=== PATIENT | male | born 1945 | race Caucasian/White ===

== ENCOUNTER 2021-04-16 10:56 | Emergency (ER) | payer MEDICARE, OTHER ==
[2021-04-16 11:48] LABS: HEMOGLOBIN 14.5 gm/dl (14.0-17.5); RED BLOOD COUNT 4.79 M/UL (4.20-5.50); WHITE BLOOD COUNT 9.6 K/UL (4.5-11.0)
[2021-04-16] MEDS ORDERED: BACTRIM 400-801 EACH PO (16:48)
[2021-04-16] MEDS ORDERED: CEPHALEXIN500 M1 PO (16:48)
== END 2021-04-16 17:46 | disposition home or self-care (01) ==
LOC: ER1 10:56
PROVIDERS: Physician Assistant
DX: N41.0 Acute prostatitis (principal); E11.9 Type 2 diabetes mellitus without complications; I10 Essential (primary) hypertension
CPT/HCPCS: 80053; 81001; 85025; 99284; J7030; Q9967

== ENCOUNTER → 2021-05-01 | Outpatient (CLI) | payer MEDICARE, OTHER ==
[~2021-05-01] MED LIST: BACTRIM 400-801 EACH PO; CEPHALEXIN500 M1 PO
== END ==
LOC: KOH-I 12:07
DX: J44.1 Chronic obstructive pulmonary disease with (acute) exacerbation (principal)
CPT/HCPCS: 71046

== ENCOUNTER → 2022-01-29 | Outpatient (CLI) | payer MEDICARE, OTHER | LOC: ECHO 01-28 11:00 | DX: Z01.810 Encounter for preprocedural cardiovascular examination (principal); I10 Essential (primary) hypertension; I08.1 Rheumatic disorders of both mitral and tricuspid valves | CPT/HCPCS: ECHO; 93306 ==

== ENCOUNTER 2022-03-06 12:38 | Emergency (ER) | payer MEDICARE, OTHER ==
[2022-03-06 13:54] LABS: HEMOGLOBIN 12.7 gm/dl (14.0-17.5); RED BLOOD COUNT 4.16 M/UL (4.20-5.50); WHITE BLOOD COUNT 10.8 K/UL (4.5-11.0)
[2022-03-06] MEDS ORDERED: ZOFRAN ODT 4 MG4 MG PO (17:58)
== END 2022-03-06 18:45 | disposition home or self-care (01) ==
LOC: ER1 12:38
PROVIDERS: Physician Assistant
DX: G89.18 Other acute postprocedural pain (principal); M54.50 Low back pain, unspecified; R11.2 Nausea with vomiting, unspecified; E78.5 Hyperlipidemia, unspecified; E11.22 Type 2 diabetes mellitus with diabetic chronic kidney disease; I12.9 Hypertensive chronic kidney disease with stage 1 through stage 4 chronic kidney disease, or unspecified chronic kidney disease; N18.9 Chronic kidney disease, unspecified; J44.9 Chronic obstructive pulmonary disease, unspecified; Z88.0 Allergy status to penicillin; Z88.5 Allergy status to narcotic agent; Z88.1 Allergy status to other antibiotic agents
CPT/HCPCS: 71045; 80053; 81001; 83605; 83690; 83735; 85025; 96374; 96375; 96376; 99284; J2270; J2405

== ENCOUNTER 2022-04-21 14:33 | Emergency (ER) | payer MEDICARE, OTHER ==
[~2022-04-21 14:33] MED LIST changes: +ZOFRAN ODT 4 MG4 MG PO
[2022-04-21 16:15] LABS: HEMOGLOBIN 13.7 gm/dl (14.0-17.5); RED BLOOD COUNT 4.51 M/UL (4.20-5.50); WHITE BLOOD COUNT 8.1 K/UL (4.5-11.0)
[2022-04-21] MEDS ORDERED: COMPAZINE 10MG10 MG PO (18:35)
== END 2022-04-21 18:43 | disposition home or self-care (01) ==
LOC: ER1 14:33
PROVIDERS: Physician Assistant Medical
DX: R11.0 Nausea (principal); R07.89 Other chest pain; I10 Essential (primary) hypertension; E11.9 Type 2 diabetes mellitus without complications; Z88.5 Allergy status to narcotic agent; Z88.0 Allergy status to penicillin; Z88.1 Allergy status to other antibiotic agents
CPT/HCPCS: 71045; 80053; 81001; 84484; 85025; 93005; 99285